=== PATIENT | male | born 1990 | race Two or more races ===

== ENCOUNTER 2018-09-15 11:02 | Emergency (ER) | payer OTHER ==
[2018-09-15 11:18] VITALS: BP 144/99; PULSE 90; TEMP 98.6; BMI 21.6
[2018-09-15] MEDS ORDERED: ONDANSETRON 4 MG/2 ML VIAL ONE (12:02)
[2018-09-15] MEDS ORDERED: FAMOTIDINE 20 MG/50 ML IVPB 20 MG/50 ML MG IVPB ONE ×2 (12:02→12:05)
[2018-09-15] MEDS ORDERED: SODIUM CHLORIDE 1,000 ML IV STA ×2 (12:05→13:13)
[2018-09-15] MEDS ORDERED: ONDANSETRON 4 MG/2 ML VIAL IVPUSH ONE (12:05)
--- NOTE | 2018-09-15 12:05 | PDOC ---
History of Present Illness - General Chief Complaint: Nausea/Vomiting Stated Complaint: NAUSEA/VOMITING Time Seen by Provider: 09/15/18 11:42 History Source: Patient Exam Limitations: No Limitations - History of Present Illness Initial Comments: CHIEF COMPLAINT: 28 y/o afebrile male with no significant PMH c/o vomiting and epigastric pain x 4 days. HISTORY OF PRESENT ILLNESS: The patient states that he had some pizza 4 nights ago and began vomiting afterwards. He was just able to keep down some small sips of water this morning. He denies fever, diarrhea, lower abd pain, RUIZ, dysuria, hematuria. Vital signs on arrival are within normal limits. REVIEW OF SYSTEMS: GENERAL/CONSTITUTIONAL: No fever/chills. No weakness. No weight change. HEAD, EYES, EARS, NOSE AND THROAT: No change in vision. No ear pain or discharge. No sore throat. CARDIOVASCULAR: No chest pain or shortness of breath. RESPIRATORY: No cough, wheezing, or hemoptysis. GASTROINTESTINAL: +nausea, vomiting and epigastric pain. No diarrhea, constipation. GENITOURINARY: No dysuria, frequency, or change in urination. MUSCULOSKELETAL: No joint or muscle swelling or pain. No neck or back pain. SKIN: No rash or easy bruising. NEUROLOGIC: No headache, vertigo, loss of consciousness, or loss of sensation. PHYSICAL EXAM: GENERAL: The patient is awake, alert, and fully oriented, in no acute distress. he is non toxic but uncomfortable appearing. HEAD: Normal with no signs of trauma. ENT: Pupils equal, round and reactive to light, extraocular movements intact, sclera anicteric, conjunctiva clear. Mucous membranes moist. LUNGS: Clear to auscultation bilaterally. Normal excursion. No respiratory distress or use of accessory muscles. CV: RRR, S1/S2, no MRG. Cap refill < 2 sec. ABDOMEN: Soft, non-distended, TTP of epigastric region, no hepatomegaly or splenomegaly, no masses. No RLQ TTP. No rebound, guarding or rigidity. Negative Truong's sign. EXTREMITIES: Normal range of motion, no edema. NEUROLOGICAL: Normal speech, normal gait. CN II-XII grossly intact. SKIN: Warm, dry, normal turgor, no rashes or lesions noted. Past History - Past Medical History Allergies/Adverse Reactions: Allergies Allergy/AdvReac Type Severity Reaction Status Date / Time Cephalosporins Allergy Intermediate Hives Verified 09/15/18 11:16 Home Medications: Ambulatory Orders Ondansetron [Zofran *Odt*] 4 mg SL BID #14 od.tablet 09/29/17 Ondansetron [Zofran *Odt*] 4 mg SL BID #4 od.tablet 09/15/18 COPD: No GI Disorders: Yes (Acid Reflux NO MEDS) - Immunization History Td Vaccination: No TDAP Vaccination: No Immunization Up to Date: Yes - Suicide/Smoking/Psychosocial Hx Smoking Status: Yes (MARIJUANA) Smoking History: Never smoked Years of Tobacco Use: 2 Have you smoked in the past 12 months: Yes Number of Cigarettes Smoked Daily: 0 Cigars Per Day: 0 Information on smoking cessation initiated: No Hx Alcohol Use: No Drug/Substance Use Hx: No Substance Use Type: None *Physical Exam - Vital Signs Last Vital Signs Temp Pulse Resp BP Pulse Ox 98.6 F 90 18 144/99 100 09/15/18 11:14 09/15/18 11:14 09/15/18 11:14 09/15/18 11:14 09/15/18 11:14 Moderate Sedation - Procedure Monitoring Vital Signs: Procedure Monitoring Vital Signs Temperature 98.6 F 09/15/18 11:14 Pulse Rate 90 09/15/18 11:14 Respiratory Rate 18 09/15/18 11:14 Blood Pressure 144/99 09/15/18 11:14 O2 Sat by Pulse Oximetry (%) 100 09/15/18 11:14 Medical Decision Making - Medical Decision Making A/P: 28 y/o male with signs of gastroenteritis and acid reflux. Plan is as follows: 1. IV fluids x 2 2. IV zofran 3. IV pepcid Patient feels better and can tolerate PO fluids. Will discharge to home with rx for zofran. Instructed him to continue to hydrate at home, bland diet for 24 hours and return to the ER with any worsening or concerning symptoms. The patient verbalizes understanding of all instructions, has no further questions and is awaiting discharge. *DC/Admit/Observation/Transfer Diagnosis at time of Disposition: Nausea and vomiting, Epigastric abdominal pain - Discharge Dispostion Disposition: HOME Condition at time of disposition: Improved - Prescriptions Prescriptions: Ondansetron [Zofran *Odt*] 4 mg SL BID #4 od.tablet - Referrals Referrals: Thuy Miramontes MD [Primary Care Provider] - - Patient Instructions Printed Discharge Instructions: DI for Nausea -- Adult, DI for Vomiting -- Adult, DI for Epigastric Pain Additional Instructions: Discharge instructions: -Continue to hydrate at home -Eat a bland diet for the next 24 hours and then slowly advance your diet -Take zofran if needed for nausea/vomiting -Return to the ER with any worsening or concerning symptoms - Post Discharge Activity
== END 2018-09-15 14:40 | disposition home or self-care (01) ==
LOC: JER 11:02
PROC: 3E0337Z Introduction of Electrolytic and Water Balance Substance into Peripheral Vein, Percutaneous Approach (ICD-10-PCS; principal; 2018-09-15)
PROC: 3E033GC Introduction of Other Therapeutic Substance into Peripheral Vein, Percutaneous Approach (ICD-10-PCS; 2018-09-15)
PROC: 3E033GC Introduction of Other Therapeutic Substance into Peripheral Vein, Percutaneous Approach (ICD-10-PCS; 2018-09-15)
DX: R10.13 Epigastric pain (principal)
CPT/HCPCS: 96361; 96365; 96375; 99282-25; J7030

== ENCOUNTER 2019-05-20 12:02 | Emergency (ER) | payer OTHER ==
[2019-05-20 12:17] VITALS: BP 139/98; PULSE 89; TEMP 98.9; BMI 22.3
[2019-05-20] MEDS ORDERED: SODIUM CHLORIDE 0.9% 500 ML INFUS.BAG IV ONE (14:37)
[2019-05-20] MEDS ORDERED: ONDANSETRON 4 MG/2 ML VIAL IVPUSH ONE (14:37)
[2019-05-20] MEDS ORDERED: MAG HYDROX/AL HYDROX/SIMETH 30 ML UNIT-DOSE CUP PO ONE (14:37)
[2019-05-20] MEDS ORDERED: FAMOTIDINE 20 MG/50 ML IVPB 20 MG/50 ML MG IVPB ONE ×2 (14:38→15:07)
[2019-05-20] MEDS ORDERED: LIDOCAINE VISCOUS 2% ORAL/TOP 20 ML UNIT-DOSE CUP MM ONE (14:38)
--- NOTE | 2019-05-20 14:46 | PDOC ---
History of Present Illness - General Chief Complaint: Pain Stated Complaint: THROWING UP/ ABD PAIN Time Seen by Provider: 05/20/19 14:19 - History of Present Illness Initial Comments: Mr. Reyes is a 29 y/o male with hx of GERD, slow GI motility, and extensive marijuana use, presenting today with nausea and vomiting NBNB that started on Monday. Reports that he has been vomiting countless times over the past two days. Has been seen here many times before for nausea/vomiting. Denies fever, denies chills, denies hematemesis, hematochezia, melena. Reports chronic constipation. Denies headache, dizziness, chest pain, shortness of breath. PMH: GERD, slow GI motility, low magnesium SurgHx: none Meds: pepcid OTC SocHx: social ETOH use, extensive marijuana use Past History - Past Medical History Allergies/Adverse Reactions: Allergies Allergy/AdvReac Type Severity Reaction Status Date / Time Cephalosporins Allergy Intermediate Hives Verified 05/20/19 12:17 Home Medications: Ambulatory Orders Ondansetron [Zofran *Odt*] 4 mg SL BID #14 od.tablet 09/29/17 Ondansetron [Zofran *Odt*] 4 mg SL BID #4 od.tablet 09/15/18 COPD: No GI Disorders: Yes (Acid Reflux NO MEDS) - Immunization History Td Vaccination: No TDAP Vaccination: No Immunization Up to Date: Yes - Suicide/Smoking/Psychosocial Hx Smoking Status: Yes (MARIJUANA) Smoking History: Never smoked Years of Tobacco Use: 2 Have you smoked in the past 12 months: Yes Number of Cigarettes Smoked Daily: 0 Cigars Per Day: 0 Information on smoking cessation initiated: No Hx Alcohol Use: No Drug/Substance Use Hx: No Substance Use Type: None Review of Systems - Review of Systems Comments:: ROS GENERAL/CONSTITUTIONAL: No fever or chills. No weakness._ HEAD, EYES, EARS, NOSE AND THROAT: No change in vision. No ear pain or discharge. No sore throat._ CARDIOVASCULAR: No chest pain or shortness of breath_ RESPIRATORY: Denies cough, hemoptysis_ GASTROINTESTINAL: Reports nausea, vomiting, constipation (chronic). Denies diarrhea. GENITOURINARY: No dysuria, frequency, or change in urination._ MUSCULOSKELETAL: No joint or muscle swelling or pain. No neck or back pain._ SKIN: No rash_ NEUROLOGIC: No headache, vertigo, loss of consciousness, or change in strength/ sensation._ ENDOCRINE: No increased thirst. No abnormal weight change_ HEMATOLOGIC/LYMPHATIC: No anemia, easy bleeding, or history of blood clots._ ALLERGIC/IMMUNOLOGIC: No hives or skin allergy._ *Physical Exam - Vital Signs Last Vital Signs Temp Pulse Resp BP Pulse Ox 98.9 F 89 19 139/98 100 05/20/19 12:15 05/20/19 12:15 05/20/19 12:15 05/20/19 12:15 05/20/19 12:15 - Physical Exam Comments: PE GENERAL: Awake, alert, and oriented to person/place/time, in no acute distress_ HEAD: No signs of trauma, normocephalic, atraumatic _ EYES: PERRLA, EOMI, sclera anicteric, conjunctiva clear_ ENT: Hearing grossly normal, nares patent, oropharynx clear without exudates. No uvular deviation. Moist mucosa_ NECK: Normal ROM, supple, no lymphadenopathy, JVD, or masses_ LUNGS: No distress, speaks in full sentences, clear to auscultation bilaterally _ HEART: Regular rate and rhythm, normal S1 and S2, no murmurs appreciated, peripheral pulses normal and equal bilaterally._ ABDOMEN: Soft, tenderness to palpation epigastric and periumbilical areas without rebound or guarding. No masses. EXTREMITIES: Normal inspection, Normal range of motion, no edema. No clubbing or cyanosis_ NEUROLOGICAL: Cranial nerves II through XII grossly intact. Normal speech, normal gait, no focal sensorimotor deficits _ SKIN: Warm, Dry, normal turgor, no rashes or lesions noted_ ED Treatment Course - LABORATORY CBC & Chemistry Diagram: 05/20/19 14:57 05/20/19 14:57 Medical Decision Making - Medical Decision Making 29M with hx of GERD, slow GI motility, and nausea/vomiting presenting with N/V since Monday. Reports "too many to count" episodes. Extensive marijuana use. Plan to obtain CBC, CMP, lipase, EKG, magnesium. 05/20/19 16:03 EKG shows NSR 61 bpm, no ST elevation/depression, no axis deviation, QTc 426 ms. 05/20/19 17:19 Patient unable to be found in the ED or surrounding patient care areas. Likely to have eloped with IV still in his arm. Called his cell phone number on file and his mother's phone number on file and left a voicemail message explaining the urgency that he return to the ED for removal of his IV. 05/20/19 17:27 Spoke with Julia HERNANDEZ about the patient and the IV in his arm. Provided name, address, . Case # [id number] *DC/Admit/Observation/Transfer Diagnosis at time of Disposition: Eloped from emergency department - Discharge Dispostion Disposition: ELOPED Condition at time of disposition: Unchanged/Unknown - Referrals - Patient Instructions - Post Discharge Activity
[2019-05-20] MEDS ORDERED: MAG HYDROX/AL HYDROX/SIMETH 30 ML UNIT-DOSE CUP ONE (15:06)
[2019-05-20] MEDS ORDERED: LIDOCAINE VISCOUS 2% ORAL/TOP 20 ML UNIT-DOSE CUP ONE (15:06)
[2019-05-20] MEDS ORDERED: ONDANSETRON 4 MG/2 ML VIAL ONE (15:07)
[2019-05-20 15:14] LABS: BASO % 0.6 % (0-2.0); HEMOGLOBIN 17.3 GM/dL (11.7-16.9); LYMPH % 11.3 % (8-40); MCH 30.8 pg (25.7-33.7); MCHC 33.9 g/dl (32.0-35.9); MEAN CELL VOLUME 90.8 fl (80-96); MEAN PLT VOLUME 8.9 fl (7.5-11.1); MONO % 10.5 % (3.8-10.2); NEUT % 77.6 % (42.8-82.8); PLATELET COUNT 317 K/MM3 (134-434); RBC 5.62 M/mm3 (4.00-5.60); RDW 13.5 % (11.9-15.9); WHITE BLOOD COUNT 11.9 K/mm3 (4.0-10.0)
[2019-05-20 15:36] LABS: ALBUMIN 4.9 g/dl (3.4-5.0); BILIRUBIN,TOTAL 0.6 mg/dL (0.2-1); BLOOD UREA NITROGEN 23.7 mg/dL (7-18); CALCIUM 10.6 mg/dL (8.5-10.1); CREATININE 1.1 mg/dL (0.55-1.3); POTASSIUM 4.3 mmol/L (3.5-5.1); TOT PROT 8.7 g/dl (6.4-8.2)
[2019-05-20] MEDS ORDERED: HALOPERIDOL LACTATE 5 MG/ML IV ONE ×3 (15:56→16:26)
[2019-05-20] MEDS ORDERED: HALOPERIDOL LACTATE 5 MG/ML ONE ×2 (16:06→16:36)
--- NOTE | 2019-05-20 16:13 | PDOC ---
Documentation entered by Joanna Bridges SCRIBE, acting as scribe for Mohit Maharaj MD. Mohit Maharaj MD: This documentation has been prepared by the cassieibe, Joanna Bridges SCRIBE, under my direction and personally reviewed by me in its entirety. I confirm that the documentation accurately reflects all work, treatment, procedures, and medical decision making performed by me. Attending Attestation - Resident Resident Name: Gerson Quevedo - ED Attending Attestation I have performed the following: I have examined & evaluated the patient, The case was reviewed & discussed with the resident, I agree w/resident's findings & plan, Exceptions are as noted - HPI HPI: 05/20/19 15:43 The patient is a 29-year-old male, with a past medical history of GERD, slow GI motility, and daily marijuana use, who presents to the ED with 2 days of nausea and NB/NB vomiting and epigastric pain. The patient has been seen multiple times in the past for similar symptoms. The patient denies fevers, chills, diarrhea, hematochezia, or melena. Denies any chest pain, palpitations or shortness of breath. Denies any urinary symptoms. Allergies: Cephalosporins. - Physicial Exam PE: 05/20/19 15:43 GENERAL: Awake, alert, and fully oriented, in no acute distress. HEAD: No signs of trauma EYES: PERRLA, EOMI, sclera anicteric, conjunctiva clear ENT: Auricles normal inspection, hearing grossly normal, nares patent, oropharynx clear without exudates. Moist mucosa NECK: Nontender, no stepoffs, Normal ROM, supple, no lymphadenopathy, JVD, or masses LUNGS: Breath sounds equal, clear to auscultation bilaterally. No wheezes, and no crackles HEART: Regular rate and rhythm, normal S1 and S2, no murmurs, rubs or gallops ABDOMEN: + epigastric TTP, negative ramirez's, normoactive bowel sounds. No guarding, no rebound. No masses EXTREMITIES: Normal range of motion, no edema. No clubbing or cyanosis. No cords, erythema, or tenderness NEUROLOGICAL: Cranial nerves II through XII intact. 5/5 strength and sensation in all extremities, Normal speech, normal gait, normal cerebellar function SKIN: Warm, Dry, normal turgor, no rashes or lesions noted. - Medical Decision Making 05/20/19 16:15 29 M with epigastric pain + N + V. Suspect gastritis vs gastroparesis vs cannabanoid hyperemesis syndrome. No clinical evidence of mando/appy/colitis/ diverticulitis. - Labs - IVF, GI cocktail 05/20/19 17:16 Labs unremarkable Pt could not be found in ED, likely eloped with IV in place. Attempted to call pt's provided phone number twice, with no response. Called pt's mother, who has not seen him. Julia HERNANDEZ notified 05/20/19 17:35 Pt's IV bag found with tubing and angiocath attached. Pt did not have IV in place when he eloped.
[2019-05-20] MEDS ORDERED: ACETAMINOPHEN 1000 MG/100 ML VIAL (NON FORMULARY) IVPB ONE (16:27)
[2019-05-20] MEDS ORDERED: ACETAMINOPHEN INJECTION 100 ML IVPB ONE (16:36)
--- NOTE | 2019-05-21 15:23 | EKG ---
Test Reason : Blood Pressure : / mmHG Vent. Rate : 061 BPM Atrial Rate : 061 BPM P-R Int : 114 ms QRS Dur : 104 ms QT Int : 424 ms P-R-T Axes : 075 080 057 degrees QTc Int : 426 ms NORMAL SINUS RHYTHM RIGHT ATRIAL ENLARGEMENT LEFT VENTRICULAR HYPERTROPHY ABNORMAL ECG Confirmed by MD JAKOB, JORGE LUIS ([id number]) on 05/21/2019 3:23:22 PM Referred By: Confirmed By:JORGE LUIS ROBERT MD
== END 2019-05-20 16:49 | disposition left against medical advice (07) ==
LOC: JER 12:02
PROC: 3E033GC Introduction of Other Therapeutic Substance into Peripheral Vein, Percutaneous Approach (ICD-10-PCS; principal; 2019-05-20)
PROC: 3E033GC Introduction of Other Therapeutic Substance into Peripheral Vein, Percutaneous Approach (ICD-10-PCS; 2019-05-20)
DX: R11.2 Nausea with vomiting, unspecified (principal)
CPT/HCPCS: 36415; 80053; 83690; 83735; 85025; 93005; 93010; 96365; 96375; 99283-25